=== PATIENT | male | born 1985 | race Caucasian/White ===

== ENCOUNTER 2024-03-23 13:41 | Emergency (ER) | payer OTHER, SELFPAY ==
--- NOTE | ~2024-03-23 | US_ITS ---
EXAMINATION: US soft tissue abdomen DATE: 03/23/2024 16:16 INDICATION: Right lower quadrant abdominal pain and cellulitis. TECHNIQUE: Multiple grayscale and Doppler ultrasound images of the abdomen were obtained. COMPARISON: None FINDINGS: In the right lower quadrant, there is a 1.8 x 0.5 x 3.4 cm mixed cystic and hypoechoic subc utaneous mass. IMPRESSION: 1. 1.8 x 0.5 x 3.4 cm partially cystic subcutaneous mass in right lower quadrant of the abdomen, cons istent with hematoma versus abscess. Reviewed, dictated and finalized at location A. IMPRESSION: 1. 1.8 x 0.5 x 3.4 cm partially cystic subcutaneous mass in right lower quadran t of the abdomen, consistent with hematoma versus abscess.
[2024-03-23 13:50] VITALS: BP 146/92; PULSE 102; RESP 22; TEMP 37.2; O2SAT 95
--- NOTE | 2024-03-23 14:32 | ED.SKABFB ---
HPI - Skin/Abscess/Foreign Bdy General Chief complaint: Skin/Abscess/Foreign Body Stated complaint: abd abcess Time Seen by Provider: 03/23/24 14:10 Source: patient Mode of arrival: ambulatory Limitations: no limitations History of Present Illness HPI narrative: This is a 38 year old male that presents to the ER for an abscess to the right side of his abdomen. Reports it has been ongoing over the last week. Reports worsening redness and swelling. He has history of HS. This abscess has not spontaneously drained, which prompted him to be seen. Denies fevers. Related Data Allergies Allergy/AdvReac Type Severity Reaction Status Date / Time aripiprazole [From Abilify] Allergy Unknown Verified 03/23/24 19:01 Review of Systems Review of Systems: CONSTITUTIONAL: Denies fever GASTROINTESTINAL: Denies abdominal pain, nausea, vomiting All systems reviewed & are unremarkable except as noted in HPI and below PMFSH Past Medical History Medical History (Updated 03/23/24 @ 19:13 by Loli Carlton PA-C) History of diabetes mellitus History of gastroesophageal reflux (GERD) History of hypertension Social History Social History (Updated 03/23/24 @ 19:09 by Loli Carlton PA-C) Substance use: never Exam Narrative: GENERAL: Well-appearing, obese, and in no acute distress. HEAD: Normocephalic, atraumatic. EYES: EOMI. CHEST: Clear to auscultation. No respiratory distress. No wheezes rales or rhonchi HEART: Regular rate and rhythm. No murmur heard. Normal peripheral pulses. ABDOMEN: Soft, nontender, nondistended, normal active bowel sounds. Right abdominal wall with small area of fluctuance with mild to moderate surrounding redness EXTREMITIES: Normal range of motion. No edema. SKIN: Warm, dry, no rash. NEURO: No focal deficits. Alert and oriented x3. PSYCH: Normal mood and affect Course Course Emergency Course: Patient and family made aware of workup and recommendation for admission for further management of cellulitis. Patient declines to be admitted at this time. Will trial outpatient management with oral antibiotics Vital Signs Vital signs: Vital Signs Temperature 99 F 03/23/24 13:50 Pulse Rate 102 H 03/23/24 13:50 Respiratory Rate 22 H 03/23/24 13:50 Blood Pressure 146/92 H 03/23/24 13:50 Pulse Oximetry 95 03/23/24 13:50 Oxygen Delivery Room Air 03/23/24 13:50 Temperature 97.6 F 03/23/24 19:01 Pulse Rate 88 03/23/24 19:01 Respiratory Rate 18 03/23/24 19:01 Blood Pressure 133/71 03/23/24 19:01 Pulse Oximetry 95 03/23/24 19:01 Oxygen Delivery Room Air 03/23/24 13:50 Procedures Abscess I/D abdomen: Date of Incision: 03/23/24 Local Anesthetic: lidocaine 1% and with epi Amount of anesthesia used (mL): 2 Technique: needle aspiration and incised with #11 blade Irrigation: Yes Packing used?: none I&D Results: Pus and Blood MDM - Skin/Abscess/Foreign Bdy MDM Narrative Medical decision making narrative: Patient presents to the emergency department for an abscess to his right abdominal wall. He is afebrile and nontoxic appearing. Tachycardic upon arrival, this normalized without intervention. Cbc without leukocytosis. Lactic acid is not elevated. CRP mildly elevated. Beta hydroxybutyrate is not elevated. Soft tissue ultrasound of the area shows a small subcutaneous abscess. This was successfully drained. Patient and family made aware of workup and recommendation for admission for further management of cellulitis. Patient declines to be admitted at this time. Will trial outpatient management with oral antibiotics. He was instructed to return at any time for worsening symptoms Differential Diagnosis Differential diagnosis: Likely abscess of skin or subcutaneous tissue and cellulitis Lab Data Attestation: I reviewed the patient's lab results. 03/23/24 15:29 03/23/24 15:29 Labs: Lab Results
[2024-03-23 15:34] LABS: Basophils Absolute Auto 0.1 K/mm3 (0.0-0.1); Basophils Percent Auto 0.9 % (0.2-1.2); Eosinophils Absolute Auto 0.4 K/mm3 (0-0.3); Eosinophils Percent Auto 4.2 % (0-4.4); Hemoglobin 14.6 g/dL (14.0-18.0); Immature Granulocyte Absolute 0.05 K/mm3 (0.00-0.031); Immature Granulocyte Percent A 0.5 % (0-0.5); Lymphocytes Absolute Auto 3.23 K/mm3 (0.9-3.2); Lymphocytes Percent Auto 34.5 % (18.3-44.2); Mean Corpuscular HGB Conc 32.4 g/dl (32-36); Mean Corpuscular Hemoglobin 30.2 pg (26-34); Mean Corpuscular Volume 93.2 fl (80-100); Mean Platelet Volume 10.1 fl (7.4-10.4); Monocytes Absolute Auto 0.8 K/mm3 (0.1-0.6); Neutrophils Absolute Auto 4.9 K/mm3 (1.3-6.7); Neutrophils Percent Auto 51.9 % (45.5-73.1); Platelet Count Result 266 k/mm3 (150-375); Red Blood Count 4.83 M/mm3 (4.6-6.20); Red Cell Distribution Width 14.3 % (11.5-14.5); White Blood Count 9.4 K/mm3 (4.5-10.0)
[2024-03-23 15:44] LABS: Lactic Acid Reflex 1.1 mmol/L (0.7-2.0)
[2024-03-23 15:45] LABS: Magnesium 1.8 mg/dL (1.6-2.3); Phosphorus 3.2 mg/dL (2.5-4.5)
[2024-03-23 15:50] LABS: Alanine Aminotransferase 90 U/L (6-50); Albumin Level 4.2 g/dL (3.5-5.1); Alkaline Phosphatase 69 U/L (38-126); Anion Gap 11 mmol/L (4-12); Aspartate Amino Transferase 53 U/L (17-59); Bilirubin,Total 0.4 mg/dL (0.2-1.3); Blood Urea Nitrogen 17 mg/dL (9-20); CRP 1.7 mg/dL (<1.0); Calcium 9.6 mg/dL (8.4-10.2); Carbon Dioxide 24 mmol/L (22-30); Chloride 100 mmol/L (98-107); Estimated CRCL calculation 132 ml/min; Estimated Glomerular Filt Rate > 60; Glucose 167 mg/dL (65-110); Sodium 135 mmol/L (137-145)
[2024-03-23 16:01] LABS: Erythrocyte Sedimentation Rate 14 mm/hr (0-20)
[2024-03-23 16:14] VITALS: BP 125/67; PULSE 88; RESP 18; TEMP 36.3; O2SAT 95
[2024-03-23 19:01] VITALS: BP 133/71; PULSE 88; RESP 18; TEMP 36.4; O2SAT 95
[2024-03-23] MEDS: DOXYCYCLINE HYCLATE 100 MG TABLET PO (19:07)
== END 2024-03-23 19:23 | disposition home or self-care (01) ==
PROVIDERS: Emergency Provider Physician Assistant
DX: L02.211 Cutaneous abscess of abdominal wall (principal); L03.311 Cellulitis of abdominal wall; I10 Essential (primary) hypertension; E11.9 Type 2 diabetes mellitus without complications; K21.9 Gastro-esophageal reflux disease without esophagitis
CPT/HCPCS: 10060; 36415; 76705; 80053; 82010; 83605; 83735; 84100; 85025; 85652; 86140; 87070; 87205; 99284; A9270